=== PATIENT | male | born 1990 | race Caucasian/White ===

== ENCOUNTER 2018-11-28 23:53 | Emergency (ER) | payer BC, OTHER ==
[2018-11-29 00:41] LABS: Basophils % (Auto) 0.2 % (0.0-1.8); Eosinophils % (Auto) 0.2 % (0.0-4.3); Hematocrit 39.4 % (35.5-45.6); Hemoglobin 13.8 gm/dl (11.8-15.2); Lymphocytes # (Auto) 1.7 K/mm3 (1.2-5.4); Lymphocytes % (Auto) 12.2 % (13.4-35.0); Mean Corpuscular HGB Conc 35 % (32-34); Mean Corpuscular Volume 87 fl (84-94); Monocytes # (Auto) 1.4 K/mm3 (0.0-0.8); Platelet Count 268 K/mm3 (140-440); Red Blood Count 4.55 M/mm3 (3.65-5.03); Red Cell Distribution Width 14.1 % (13.2-15.2)
[2018-11-29 01:05] LABS: Alanine Aminotransferase 15 units/L (7-56); Albumin 4.3 g/dL (3.9-5); BUN/Creatinine Ratio 9; Blood Urea Nitrogen 8 mg/dL (9-20); Calcium 9.4 mg/dL (8.4-10.2); Hemolysis Index 1
[2018-11-29] MEDS ORDERED: K-DUR PO ONE (02:04)
--- NOTE | 2018-11-29 02:18 | Emergency Department Report ---
HPI - General Chief Complaint: Fever Time Seen by Provider: 11/29/18 02:03 - HPI HPI: 28-year-old male presents to the emergency department with complaint of a 5 day history of intermittent fever, chills, sweats, nausea, vomiting, sore throat and body aches. The patient went to an urgent care a few days ago and was diagnosed with strep throat and was placed on Augmentin, Zofran and ibuprofen. The patient did take one of the 800 mg ibuprofen just prior to coming in today. He says that he is able to drink water and some Gatorade and keep that down but is unable to keep down any food. He denies any past medical history. He does not have a primary care physician. No recent travel or sick contacts at home. ED Past Medical Hx - Past Medical History Previous Medical History?: Yes Additional medical history: unknown sepsis (4-5 years old) - Surgical History Past Surgical History?: No - Social History Smoking Status: Never Smoker - Medications Home Medications: Home Medications Medication Instructions Recorded Confirmed Last Taken Type Doxycycline Hyclate [Doxycycline 100 mg PO Q12HR #20 tab 01/29/16 Unknown Rx Hyclate TAB] HYDROcodone/APAP 5-325 [[place] 1 each PO Q6HR PRN #12 tablet 01/29/16 Unknown Rx 5/325] ED Review of Systems ROS: Stated complaint: NAUSEA FEVER CHILLS AND BODY ACHE Other details as noted in HPI Comment: All other systems reviewed and negative Constitutional: chills, fever Eyes: denies: eye pain, vision change ENT: throat pain. denies: ear pain Respiratory: denies: cough, shortness of breath Cardiovascular: denies: chest pain, palpitations Gastrointestinal: nausea, vomiting Genitourinary: denies: dysuria, discharge Musculoskeletal: myalgia. denies: joint swelling Skin: denies: rash, lesions Neurological: denies: headache, weakness Physical Exam - Physical Exam Vital Signs: Vital Signs 11/29/18 11/29/18 00:06 01:18 Temperature 99.0 F 99.6 F Pulse Rate 83 72 Respiratory 18 16 Rate Blood Pressure 133/85 Blood Pressure 127/80 [Left] O2 Sat by Pulse 100 99 Oximetry Physical Exam: GENERAL: The patient is well-developed well-nourished. HENT: Normocephalic. Atraumatic. Patient has moist mucous membranes. There is bilateral tonsillar hypertrophy with some bilateral exudate seen. No drooli ng or trismus. EYES: Extraocular motions are intact. Pupils equal reactive to light bilaterally. NECK: Supple. Trachea is midline. CHEST/LUNGS: Clear to auscultation. There is no respiratory distress noted. HEART/CARDIOVASCULAR: Regular. There is no tachycardia. There is no murmur. ABDOMEN: Abdomen is soft, nontender. Patient has normal bowel sounds. There is no abdominal distention. SKIN: Skin is warm and dry. NEURO: The patient is awake, alert, and oriented. The patient is cooperative. The patient has no focal neurologic deficits. The patient has normal speech. MUSCULOSKELETAL: There is no tenderness or deformity. There is no limitation range of motion. There is no evidence of acute injury. ED Course Vital Signs 11/29/18 11/29/18 00:06 01:18 Temperature 99.0 F 99.6 F Pulse Rate 83 72 Respiratory 18 16 Rate Blood Pressure 133/85 Blood Pressure 127/80 [Left] O2 Sat by Pulse 100 99 Oximetry ED Medical Decision Making - Lab Data Result diagrams: 11/29/18 00:26 11/29/18 00:26 - Medical Decision Making This patient presents to the emergency department with a complaint of about 5 days of intermittent fevers, nausea and vomiting, body aches, sore throat. He does admit that he has been able to drink water and Gatorade and keep it down but has been unable to eat food. The patient was recently diagnosed with strep pharyngitis and has been on Augmentin, Zofran and ibuprofen. He did take some ibuprofen prior to coming in and therefore did not have any fever here. Vital signs stable. He is posterior pharynx does have the appearance of a strep pharyngitis. However given that the patient's symptoms have continued despite taking the antibiotics, he could also have a viral pharyngitis and this could all be a viral syndrome. His labs are unremarkable except for some very mild hypokalemia that was replaced with potassium chloride. He will continue with his antibiotics, ibuprofen and Zofran. We discussed using Tylenol as well for control of fever. He will continue to remain hydrated with water and Gatorade. He was given some referrals for local primary care physicians. He will return to the ER with any worsening of his symptoms or any acute distress. - Differential Diagnosis viral pharyngitis, strep pharyngitis, viral syndrome, gastroenteritis Critical Care Time: No Critical care attestation.: If time is entered above; I have spent that time in minutes in the direct care of this critically ill patient, excluding procedure time. ED Disposition Clinical Impression: Viral syndrome, Pharyngitis Disposition: TO HOME OR SELFCARE Is pt being admited?: No Condition: Stable Instructions: Fever in Adults (ED), Acute Nausea and Vomiting (ED), Viral Syndrome (ED) Additional Instructions: Please follow up with a primary care physician. I will give you multiple referrals for some local primary care physicians. Return to the emergency Department with any worsening of your symptoms, inability to stay hydrated, or with any acute distress. You can take Tylenol every 4 hours and ibuprofen every 6 hours, using weight- based dosing on the back of the bottle, as needed for fever or discomfort. Referrals: JOANNA PUGH MD [Staff Physician] - 3-5 Days ZAHIRA MEDRANO MD [Staff Physician] - 3-5 Days JOSÉ MIGUEL RODRIGUEZ MD [Staff Physician] - 3-5 Days Forms: Accompanied Note, Work/School Release Form(ED) Time of Disposition: 02:18
[2018-11-29 02:46] VITALS: BP 128/75
== END 2018-11-29 02:42 | disposition home or self-care (01) ==
LOC: ED 23:53
DX: B34.9 Viral infection, unspecified (principal); J02.9 Acute pharyngitis, unspecified
CPT/HCPCS: 36415; 80053; 82140; 85025; 99283

== ENCOUNTER 2019-05-16 04:58 | Emergency (ER) | payer OTHER ==
[2019-05-16 06:27] LABS: Bacteria,Urine 1+ /HPF (Negative); Bilirubin,Urine NEG (Negative); Blood,Urine LG (Negative); Color,Urine Amber (Yellow); Mucus,Urine 3+ /HPF; Urobilinogen,Urine < 2.0 mg/dL (<2.0)
--- NOTE | 2019-05-16 06:42 | Ultrasound Report ---
ULTRASOUND SCROTUM INDICATION: Acute bilateral testicular pain. COMPARISON None available. FINDINGS: RIGHT TESTICLE: Normal in size, measuring 4.0 x 2.0 x 3.1 cm, with expected color flow and appearance . RIGHT EPIDIDYMIS: No significant abnormality. LEFT TESTICLE: Normal in size, measuring 4.3 x 2.3 x 2.8 cm, with expected color flow and appearance. LEFT EPIDIDYMIS: No significant abnormality. HYDROCELE: None seen. VARICOCELE: None seen. ADDITIONAL FINDINGS: None. IMPRESSION: 1. No sonographic abnormality of the scrotum/testes. Signer Name: Bradley Diaz MD Signed: 05/16/2019 6:37 AM Workstation Name: [id number]
--- NOTE | 2019-05-16 07:16 | Emergency Department Report ---
ED General Adult HPI - General Chief complaint: Urogenital-Male Stated complaint: LOWER STOMACH PAIN,PAIN IN PRIVATE AREA,NAUSEA Time Seen by Provider: 05/16/19 06:07 Source: patient, RN notes reviewed, old records reviewed Mode of arrival: Ambulatory Limitations: No Limitations - History of Present Illness Initial comments: During the entire history and physical examination, I am berry picker and escorted by nurse Alen Malloy The patient is a pleasant 29-year-old gentleman with a distant history of epididymitis. He presents to the ER today with a complaint of nontraumatic suprapubic pain, now resolved, history of testicular pressure, now resolved. Symptoms started at 3:00 in the morning, and were resolved with ibuprofen. He currently has no physical pain at this time. He denies dysuria and hematuria. He denies dyschezia. He denies rectal pain. He has no testicular pain at this time. Symptoms were aching, and now resolved. They do not radiate anywhere. He reports one sexual contact. He smokes marijuana, has not traveled outside the country, and has not had exposure to blue dye that he is aware of. -: Gradual Location: abdomen Radiation: non-radiation Consistency: now resolved Improves with: medication Worsens with: none Associated Symptoms: denies other symptoms - Related Data Previous Rx's Medication Instructions Recorded Last Taken Type Doxycycline Hyclate [Doxycycline 100 mg PO Q12HR #20 tab 01/29/16 Unknown Rx Hyclate TAB] HYDROcodone/APAP 5-325 [[place] 1 each PO Q6HR PRN #12 tablet 01/29/16 Unknown Rx 5/325] Acetaminophen [Non-Aspirin Extra 500 mg PO Q6HR PRN #30 tablet 05/16/19 Unknown Rx Strength] Ibuprofen [Motrin] 600 mg PO Q8H PRN #30 tablet 05/16/19 Unknown Rx Ondansetron [Zofran Odt] 4 mg PO Q8HR PRN #20 tab.rapdis 05/16/19 Unknown Rx cephALEXin [Keflex] 500 mg PO Q6HR #20 capsule 05/16/19 Unknown Rx Allergies Allergy/AdvReac Type Severity Reaction Status Date / Time No Known Allergies Allergy Verified 01/29/16 02:12 ED Review of Systems ROS: Stated complaint: LOWER STOMACH PAIN,PAIN IN PRIVATE AREA,NAUSEA Other details as noted in HPI Constitutional: denies: fever Cardiovascular: denies: syncope Gastrointestinal: abdominal pain, nausea Genitourinary: denies: urgency, dysuria, hematuria, testicular pain Musculoskeletal: denies: back pain, joint swelling Skin: denies: lesions Neurological: denies: weakness Hematological/Lymphatic: denies: easy bleeding ED Past Medical Hx - Past Medical History Previous Medical History?: No Additional medical history: unknown sepsis (4-5 years old) - Surgical History Past Surgical History?: No - Social History Smoking Status: Never Smoker Substance Use Type: Marijuana - Medications Home Medications: Home Medications Medication Instructions Recorded Confirmed Last Taken Type Doxycycline Hyclate [Doxycycline 100 mg PO Q12HR #20 tab 01/29/16 Unknown Rx Hyclate TAB] HYDROcodone/APAP 5-325 [[place] 1 each PO Q6HR PRN #12 tablet 01/29/16 Unknown Rx 5/325] Acetaminophen [Non-Aspirin Extra 500 mg PO Q6HR PRN #30 tablet 05/16/19 Unknown Rx Strength] Ibuprofen [Motrin] 600 mg PO Q8H PRN #30 tablet 05/16/19 Unknown Rx Ondansetron [Zofran Odt] 4 mg PO Q8HR PRN #20 tab.rapdis 05/16/19 Unknown Rx cephALEXin [Keflex] 500 mg PO Q6HR #20 capsule 05/16/19 Unknown Rx ED Physical Exam - General Limitations: No Limitations General appearance: alert, in no apparent distress - Head Head exam: Present: atraumatic, normocephalic - Eye Eye exam: Present: normal appearance, EOMI. Absent: nystagmus - ENT ENT exam: Present: normal exam, normal orophraynx, mucous membranes moist, normal external ear exam - Neck Neck exam: Present: normal inspection, full ROM. Absent: tenderness, meningismus - Respiratory Respiratory exam: Present: normal lung sounds bilaterally. Absent: respiratory distress - Cardiovascular Cardiovascular Exam: Present: regular rate, normal rhythm, normal heart sounds. Absent: bradycardia, tachycardia, irregular rhythm, systolic murmur, diastolic murmur, rubs, gallop - GI/Abdominal GI/Abdominal exam: Present: soft, normal bowel sounds. Absent: distended, tenderness, guarding, rebound, rigid, pulsatile mass - Rectal Rectal exam: Present: deferred - exam: Present: normal inspection, other (there is normal testicular lie. There is normal cremasteric reflex. There is no testicular tenderness. There is no testicular swelling). Absent: testicular tenderness External exam: Present: normal external exam, other (chaperoned by nurse Alen Malloy) - Extremities Exam Extremities exam: Present: normal inspection, full ROM, other (2+ pulses noted in the bilateral upper and lower extremities. There is no palpable cord. negative Homans sign. Muscular compartments are soft. The pelvis is stable.). Absent: tenderness, pedal edema, joint swelling, calf tenderness - Back Exam Back exam: Present: normal inspection, full ROM. Absent: tenderness, CVA tenderness (R), CVA tenderness (L), paraspinal tenderness, vertebral tenderness - Neurological Exam Neurological exam: Present: alert, oriented X3, normal gait, other (there is no facial droop. The tongue is midline. Extraocular movements are intact bilaterally. There is 5 out of 5 strength in bilateral upper and lower extremities. Sensation is intact to light touch bilateral upper and lower extremities. There is no past-pointing. There is no pronator drift. There is normal [id number]. There is a normal gait.). Absent: motor sensory deficit - Psychiatric Psychiatric exam: Present: normal affect, normal mood - Skin Skin exam: Present: warm, dry, intact, normal color. Absent: rash ED Course Vital Signs 05/16/19 05:24 Temperature 98.9 F Pulse Rate 79 Respiratory 18 Rate Blood Pressure 163/103 O2 Sat by Pulse 95 Oximetry ED Medical Decision Making - Lab Data Vital Signs 05/16/19 05:24 Temperature 98.9 F Pulse Rate 79 Respiratory 18 Rate Blood Pressure 163/103 O2 Sat by Pulse 95 Oximetry Lab Results 05/16/19 Range/Units 05:55 Urine Color [place] (Yellow) Urine Turbidity Cloudy (Clear) Urine pH 5.0 (5.0-7.0) Ur Specific [place] 1.021 (1.003-1.030) Urine Protein 100 mg/dl (Negative) mg/dL Urine Glucose (UA) Neg (Negative) mg/dL Urine Ketones Neg (Negative) mg/dL Urine Blood Lg (Negative) Urine Nitrite Neg (Negative) Urine Bilirubin Neg (Negative) Urine Urobilinogen < 2.0 (<2.0) mg/dL Ur Leukocyte Esterase Neg (Negative) Urine WBC (Auto) 4.0 (0.0-6.0) /HPF Urine RBC (Auto) 173.0 (0.0-6.0) /HPF U Epithel Cells (Auto) < 1.0 (0-13.0) /HPF Urine Bacteria (Auto) 1+ (Negative) /HPF Urine Mucus 3+ /HPF - Radiology Data Radiology results: report reviewed, image reviewed Print Report Referring Physician: NGOC PIERRE Patient Name: СВЕТЛНАА WERNER Date of : 1990 Sex: Male Report Date: 2019-05-16 Report Status: Finalized Findings [facility] [address] [place] [address] Ultrasound Report Signed Patient: СВЕТЛАНА WERNER MR#: [id number] : 1990 Acct:[id number] Age/Sex: 29 / M ADM Date: 05/16/19 Loc: ED Attending Dr: Ordering Physician: NGOC PIERRE MD Date of Service: 05/16/19 Procedure(s): US testicular doppler comp Accession Number(s): [id number] cc: NGOC PIERRE MD ULTRASOUND SCROTUM INDICATION: Acute bilateral testicular pain. COMPARISON None available. FINDINGS: RIGHT TESTICLE: Normal in size, measuring 4.0 x 2.0 x 3.1 cm, with expected color flow and appearance. RIGHT EPIDIDYMIS: No significant abnormality. LEFT TESTICLE: Normal in size, measuring 4.3 x 2.3 x 2.8 cm, with expected color flow and appearance. LEFT EPIDIDYMIS: No significant abnormality. HYDROCELE: None seen. VARICOCELE: None seen. ADDITIONAL FINDINGS: None. IMPRESSION: 1. No sonographic abnormality of the scrotum/testes. Signer Name: Bradley Diaz MD Signed: 05/16/2019 6:37 AM Workstation Name: [id number] Transcribed By: [place] Dictated By: Bradley Diaz MD Electronically Authenticated By: Bradley Diaz MD Signed Date/Time: 05/16/19636 DD/ 5 - Medical Decision Making Differential diagnosis, including but not limited to: Renal colic, cystitis, malignancy, bladder stone Assessment and plan: 29-year-old gentleman with resolved suprapubic discomfort. He has no testicular pain. He has no abdominal pain at this time. He is afebrile with reassuring vital signs with the exception of elevated blood pressure. Testicular examination not consistent with torsion. Ultrasound unremarkable. Urinalysis reviewed and appreciated. Extensive discussion had with patient. He prefers not to have CT scan and the abdomen and pelvis, as he is concerned about radiation exposure. He agrees that he would like to follow up with outpatient urology for further evaluation and management for his now asymptomatic hematuria. Through shared decision making, we agreed to have the patient discharged with pain medication, nausea medication, antibiotics, close outpatient neurology follow-up. The patient indicates he is reliable to follow-up. Return precautions are reviewed. Critical care attestation.: If time is entered above; I have spent that time in minutes in the direct care of this critically ill patient, excluding procedure time. ED Disposition Clinical Impression: Hematuria, History of abdominal pain Disposition: DC-01 TO HOME OR SELFCARE Is pt being admited?: No Does the pt Need Aspirin: No Condition: Stable Instructions: Acute Hematuria (ED) Additional Instructions: The time being, avoid consumption of alcohol, and smoke products. Take pain medication as needed, nausea medication as needed, antibiotics as directed. Recommend patient follow up with an outpatient urology doctor within the next 5- 7 days. Patient will need to follow-up to exclude cancer, tumor, malignancy of the genitourinary tract. Return to the emergency room right away with projectile vomiting, change in mental status, confusion, inability to tolerate liquid feeds. Patient was found to have elevated blood pressure while here in the emergency room. He should follow-up with a primary care doctor for this within the next 4-6 weeks. Referrals: MICHEAL DE LEÓN MD [Staff Physician] - 3-5 Days [facility] [place] [Provider Group] - 3-5 Days [facility] [Provider Group] - as needed
[2019-05-16 08:03] VITALS: BP 124/91
== END 2019-05-16 08:04 | disposition home or self-care (01) ==
LOC: ED 04:58
DX: R31.9 Hematuria, unspecified (principal); R10.30 Lower abdominal pain, unspecified; F12.10 Cannabis abuse, uncomplicated; Z79.899 Other long term (current) drug therapy
CPT/HCPCS: 81001; 93975

== ENCOUNTER 2019-06-11 17:47 | Emergency (ER) | payer BC, OTHER ==
--- NOTE | 2019-06-11 18:04 | Emergency Department Report ---
Blank Doc - Documentation Documentation: 29-year-old male that testicular pain. This initial assessment/diagnostic orders/clinical plan/treatment(s) is/are subject to change based on patient's health status, clinical progression and re- assessment by fellow clinical providers in the ED. Further treatment and workup at subsequent clinical providers discretion. Patient/guardians urged not to elope from the ED as their condition may be serious if not clinically assessed and managed. Initial orders include: 1- Patient sent to [facility] for further evaluation and treatment 2- UA 3- stat US testicular
[2019-06-11] MEDS ORDERED: ONDANSETRON 4 MG ODT TAB PO ONE (18:05)
[2019-06-11] MEDS ORDERED: ONDANSETRON 4 MG ODT TAB ONE (18:07)
--- NOTE | 2019-06-11 20:23 | Ultrasound Report ---
Scrotal ultrasound. 06/11/2019. HISTORY: Testicular pain. FINDINGS: Right testicle measures 4.2 x 2.2 x 2.7 cm. Left testicle measures 4 x 2.2 x 2.8 cm. Blood flow is normal. Negative for mass or fluid. A small epididymal cyst on the right measures 2 mm. IMPRESSION: Small right epididymal cyst. Signer Name: Erwin Vines MD Signed: 06/11/2019 8:19 PM Workstation Name: [id number]
[2019-06-11] MEDS ORDERED: ONDANSETRON 4 MG/2 ML INJ IV ONE (22:39)
[2019-06-11] MEDS ORDERED: KETOROLAC 30 MG/1 ML INJ IV ONE (22:39)
[2019-06-11] MEDS ORDERED: SODIUM CHLORIDE 0.9% 1000 ML 1,000 ML IV ONE (22:39)
[2019-06-11 23:37] LABS: Amorphous Crystals,Urine Few; Bacteria,Urine 1+ /HPF (Negative); Bilirubin,Urine NEG (Negative); Blood,Urine LG (Negative); Color,Urine Yellow (Yellow); Mucus,Urine 1+ /HPF; Urobilinogen,Urine < 2.0 mg/dL (<2.0)
[2019-06-11 23:55] LABS: Basophils % (Auto) 0.1 % (0.0-1.8); Hematocrit 42.2 % (35.5-45.6); Hemoglobin 14.5 gm/dl (11.8-15.2); Lymphocytes # (Auto) 1.1 K/mm3 (1.2-5.4); Lymphocytes % (Auto) 8.5 % (13.4-35.0); Mean Corpuscular HGB Conc 34 % (32-34); Mean Corpuscular Volume 88 fl (84-94); Monocytes # (Auto) 0.5 K/mm3 (0.0-0.8); Monocytes % (Auto) 3.7 % (0.0-7.3); Platelet Count 252 K/mm3 (140-440); Red Blood Count 4.78 M/mm3 (3.65-5.03); Red Cell Distribution Width 14.6 % (13.2-15.2)
--- NOTE | 2019-06-11 23:56 | Cat Scan Report ---
CT ABDOMEN AND PELVIS WITHOUT CONTRAST INDICATION: Bilateral flank pain. Nausea. Vomiting. TECHNICAL: Multiple axial CT images of the abdomen and pelvis were acquired without intravenous contr ast. Sagittal and coronal reformats were obtained. All CTs at this facility utilize dose reduction techniques including automated exposure control, iterative reconstruction and weight based dosing whe n appropriate to reduce patient radiation dose to as low as reasonable achievable. COMPARISON: No prior abdominal imaging is available. FINDINGS: Limited imaging of the bilateral lung bases demonstrates no acute abnormality. Abdomen: The liver, gallbladder, spleen, pancreas, bilateral adrenal glands and right kidney show no evidence of acute abnormality. There is mild left-sided hydronephrosis and perinephric stranding with an obstructing 4 mm stone in the proximal left ureter. There is no evidence of bowel obstruction. Th e appendix is visualized and appears normal. Pelvis: No free fluid is seen within the pelvis. The urinary bladder and prostate appear grossly norm al. Bones and Soft Tissues: Evaluation of bony structures demonstrates no acute bony abnormality. Soft t issue structures appear grossly normal. IMPRESSION: 1. Obstructing 4 mm stone in the proximal left ureter causing mild hydronephrosis and perinephric str anding. Signer Name: Shannan Marie MD Signed: 06/11/2019 11:52 PM Workstation Name: [id number]
[2019-06-12 00:22] LABS: Alanine Aminotransferase 28 units/L (7-56); Albumin 4.7 g/dL (3.9-5); BUN/Creatinine Ratio 10; Blood Urea Nitrogen 11 mg/dL (9-20); Calcium 9.6 mg/dL (8.4-10.2); Hemolysis Index 45
[2019-06-12] MEDS ORDERED: TAMSULOSIN 0.4 MG CAP PO ONE (01:03)
[2019-06-12] MEDS ORDERED: oxyCODONE /ACETAMINOPHEN 5-325MG TAB PO ONE (01:04)
[2019-06-12] MEDS ORDERED: ONDANSETRON 4 MG ODT TAB PO ONE (01:04)
--- NOTE | 2019-06-12 01:31 | Emergency Department Report ---
ED Male HPI - General Chief complaint: Urogenital-Male Stated complaint: EMESIS/LOWER ABD PAIN Time Seen by Provider: 06/11/19 18:03 Source: patient Mode of arrival: Ambulatory Limitations: No Limitations - History of Present Illness Initial comments: Patient is a 29-year-old male with no past medical history who presents to the ED with content of acute onset persistent severe bilateral testicular pain and left flank pain for the last 12 hours. Patient also complains of intractable nausea and vomiting and hematuria as well as suprapubic pain and decreased urination. Patient denies fever, chills, dizziness, syncope, traumatic injury, heavy lifting, penile discharge, low back pain, cough, chest pain or shortness of breath or diarrhea. MD Complaint: testicle pain (bilateral ), groin pain, other (left flank pain; hematuria; decreased urination; nausea and vomiting) -: Sudden, hour(s) (12) Location: penis, right testicle, left testicle, left inguinal region, left flank Radiation: none Severity: severe Severity scale (0 -10): 7 Quality: aching, sharp Consistency: constant Improves with: none Worsens with: none denies other symptoms, urinary retention, blood in urine, nausea/vomiting. denies: discharge, swelling, mass, rash, fever - Related Data Sexually active: Yes Previous Rx's Medication Instructions Recorded Last Taken Type Doxycycline Hyclate [Doxycycline 100 mg PO Q12HR #20 tab 01/29/16 Unknown Rx Hyclate TAB] HYDROcodone/APAP 5-325 [[place] 1 each PO Q6HR PRN #12 tablet 01/29/16 Unknown Rx 5/325] Acetaminophen [Non-Aspirin Extra 500 mg PO Q6HR PRN #30 tablet 05/16/19 Unknown Rx Strength] Ibuprofen [Motrin] 600 mg PO Q8H PRN #30 tablet 05/16/19 Unknown Rx Ondansetron [Zofran Odt] 4 mg PO Q8HR PRN #20 tab.rapdis 05/16/19 Unknown Rx cephALEXin [Keflex] 500 mg PO Q6HR #20 capsule 05/16/19 Unknown Rx Ciprofloxacin HCl [Ciprofloxacin 500 mg PO Q12HR #20 tab 06/12/19 Unknown Rx TAB] Ketorolac [Toradol] 10 mg PO Q8H PRN #20 tablet 06/12/19 Unknown Rx Ondansetron [Zofran Odt] 4 mg PO Q6HR PRN #20 tab.rapdis 06/12/19 Unknown Rx Tamsulosin [Flomax] 0.4 mg PO QDAY #10 cap 06/12/19 Unknown Rx oxyCODONE /ACETAMINOPHEN [Percocet 1 tab PO Q6HR PRN #12 tablet 06/12/19 Unknown Rx 5/325] Allergies Allergy/AdvReac Type Severity Reaction Status Date / Time No Known Allergies Allergy Verified 06/11/19 17:49 ED Review of Systems ROS: Stated complaint: EMESIS/LOWER ABD PAIN Other details as noted in HPI Constitutional: denies: chills, fever Eyes: denies: eye pain, eye discharge, vision change ENT: denies: ear pain, throat pain Respiratory: denies: cough, shortness of breath, wheezing Cardiovascular: denies: chest pain, palpitations Endocrine: no symptoms reported Gastrointestinal: abdominal pain (left flank), nausea, vomiting. denies: diarrhea Genitourinary: urgency, frequency, hematuria, testicular pain (left) Musculoskeletal: denies: back pain, joint swelling, arthralgia Skin: denies: rash, lesions Neurological: denies: headache, weakness, paresthesias Psychiatric: denies: anxiety, depression Hematological/Lymphatic: denies: easy bleeding, easy bruising ED Past Medical Hx - Past Medical History Previous Medical History?: No Additional medical history: unknown sepsis (4-5 years old) - Surgical History Past Surgical History?: No - Social History Smoking Status: Never Smoker Substance Use Type: None - Medications Home Medications: Home Medications Medication Instructions Recorded Confirmed Last Taken Type Doxycycline Hyclate [Doxycycline 100 mg PO Q12HR #20 tab 01/29/16 Unknown Rx Hyclate TAB] HYDROcodone/APAP 5-325 [[place] 1 each PO Q6HR PRN #12 tablet 01/29/16 Unknown Rx 5/325] Acetaminophen [Non-Aspirin Extra 500 mg PO Q6HR PRN #30 tablet 05/16/19 Unknown Rx Strength] Ibuprofen [Motrin] 600 mg PO Q8H PRN #30 tablet 05/16/19 Unknown Rx Ondansetron [Zofran Odt] 4 mg PO Q8HR PRN #20 tab.rapdis 05/16/19 Unknown Rx cephALEXin [Keflex] 500 mg PO Q6HR #20 capsule 05/16/19 Unknown Rx Ciprofloxacin HCl [Ciprofloxacin 500 mg PO Q12HR #20 tab 06/12/19 Unknown Rx TAB] Ketorolac [Toradol] 10 mg PO Q8H PRN #20 tablet 06/12/19 Unknown Rx Ondansetron [Zofran Odt] 4 mg PO Q6HR PRN #20 tab.rapdis 06/12/19 Unknown Rx Tamsulosin [Flomax] 0.4 mg PO QDAY #10 cap 06/12/19 Unknown Rx oxyCODONE /ACETAMINOPHEN [Percocet 1 tab PO Q6HR PRN #12 tablet 06/12/19 Unknown Rx 5/325] ED Physical Exam - General Limitations: No Limitations General appearance: alert, in no apparent distress - Head Head exam: Present: atraumatic, normocephalic, normal inspection - Eye Eye exam: Present: normal appearance, PERRL, EOMI - ENT ENT exam: Present: normal exam, normal orophraynx, mucous membranes moist, TM's normal bilaterally, normal external ear exam - Neck Neck exam: Present: normal inspection, full ROM - Respiratory Respiratory exam: Present: normal lung sounds bilaterally. Absent: respiratory distress, wheezes, rhonchi, chest wall tenderness, decreased breath sounds, prolonged expiratory - Cardiovascular Cardiovascular Exam: Present: regular rate, normal rhythm, normal heart sounds. Absent: systolic murmur, diastolic murmur, rubs, gallop - GI/Abdominal GI/Abdominal exam: Present: soft, tenderness (palpable left flank and left lower quadrant tenderness), normal bowel sounds. Absent: guarding, rebound, hyperactive bowel sounds, hypoactive bowel sounds, organomegaly - exam: Present: testicular tenderness (mildly tender bilateral testicles). Absent: scrotal swelling External exam: Present: other (male RN organizational consultant present during the genital exam) - Extremities Exam Extremities exam: Present: normal inspection, full ROM, normal capillary refill - Back Exam Back exam: Present: normal inspection, full ROM. Absent: tenderness, CVA tenderness (L), muscle spasm, paraspinal tenderness - Neurological Exam Neurological exam: Present: alert, oriented X3, CN II-XII intact, normal gait, reflexes normal - Psychiatric Psychiatric exam: Present: normal affect, normal mood - Skin Skin exam: Present: warm, dry, intact, normal color. Absent: rash ED Course Vital Signs 06/11/19 06/11/19 06/11/19 17:52 17:53 23:05 Temperature 98.2 F Pulse Rate 67 66 Respiratory 18 16 Rate Blood Pressure 136/98 O2 Sat by Pulse 99 98 Oximetry ED Medical Decision Making - Lab Data Result diagrams: 06/11/19 22:59 06/11/19 22:59 - Radiology Data Radiology results: report reviewed, image reviewed Findings [facility] [address] [place] [address] Cat Scan Report Signed Patient: СВЕТЛАНА WERNER MR#: [id number] : 1990 Acct:[id number] Age/Sex: 29 / M ADM Date: 06/11/19 Loc: ED Attending Dr: Ordering Physician: PAXTON LENTZ Date of Service: 06/11/19 Procedure(s): CT abdomen pelvis wo con Accession Number(s): [id number] cc: PAXTON LENTZ CT ABDOMEN AND PELVIS WITHOUT CONTRAST INDICATION: Bilateral flank pain. Nausea. Vomiting. TECHNICAL: Multiple axial CT images of the abdomen and pelvis were acquired without intravenous contrast. Sagittal and coronal reformats were obtained. All CTs at this facility utilize dose reduction techniques including automated exposure control, iterative reconstruction and weight based dosing when appropriate to reduce patient radiation dose to as low as reasonable achievable. COMPARISON: No prior abdominal imaging is available. FINDINGS: Limited imaging of the bilateral lung bases demonstrates no acute abnormality. Abdomen: The liver, gallbladder, spleen, pancreas, bilateral adrenal glands and right kidney show no evidence of acute abnormality. There is mild left-sided hydronephrosis and perinephric stranding with an obstructing 4 mm stone in the proximal left ureter. There is no evidence of bowel obstruction. The appendix is visualized and appears normal. Pelvis: No free fluid is seen within the pelvis. The urinary bladder and prostate appear grossly normal. Bones and Soft Tissues: Evaluation of bony structures demonstrates no acute bony abnormality. Soft tissue structures appear grossly normal. IMPRESSION: 1. Obstructing 4 mm stone in the proximal left ureter causing mild hydronephrosis and perinephric stranding. Signer Name: Shannan Marie MD Signed: 06/11/2019 11:52 PM Workstation Name: [id number] Transcribed By: EB Dictated By: Shannan Marie MD Electronically Authenticated By: Shannan Marie MD Signed Date/Time: 06/11/192351 DD/ 47 TD/TT: Findings [facility] [address] [place] [address] Ultrasound Report Signed Patient: СВЕТЛАНА WERNER MR#: [id number] : 1990 Acct:[id number] Age/Sex: 29 / M ADM Date: 06/11/19 Loc: ED Attending Dr: Ordering Physician: DAVID MURPHY NP Date of Service: 06/11/19 Procedure(s): US testicular doppler comp Accession Number(s): [id number] cc: DAVID MURPHY NP Scrotal ultrasound. 06/11/2019. HISTORY: Testicular pain. FINDINGS: Right testicle measures 4.2 x 2.2 x 2.7 cm. Left testicle measures 4 x 2.2 x 2.8 cm. Blood flow is normal. Negative for mass or fluid. A small epididymal cyst on the right measures 2 mm. IMPRESSION: Small right epididymal cyst. Signer Name: Erwin Vines MD Signed: 06/11/2019 8:19 PM Workstation Name: [id number] Transcribed By: ES Dictated By: Erwin Vines MD Electronically Authenticated By: Erwin Vines MD Signed Date/Time: 06/11/192018 DD/ 2 - Medical Decision Making This is a 12-year-old male who presented to the ED with testicular pain, left flank pain, hematuria and nausea and vomiting for 12 hours. In the ED, patient is alert and oriented 3 and is not in distress. Lab test results show acute leukocytosis of 13,100 and urinalysis shows significantly large amount of blood in urine. Patient was treated for pain in the ED and also received antiemetics, and 1 L normal saline IV bolus. Testicular ultrasound shows a small right epi didymal cyst. Abdomen pelvis CT scan without contrast report as read by the radiologist shows obstructing 4 mm stone in the proximal left ureter causing mild hydronephrosis and perinephric stranding. Patient was also treated in the ED with Flomax. Patient was discharged home on pain medications, Flomax, antiemetics, antibiotics and given a referral to a urologist Dr. Nicholas for follow-up in the next 3-5 days. Patient was advised to return to the ED immediately if symptoms get worse. - Differential Diagnosis UTI; Kidney stones; Epididymitis; STD Critical care attestation.: If time is entered above; I have spent that time in minutes in the direct care of this critically ill patient, excluding procedure time. ED Disposition Clinical Impression: Acute epididymitis, Kidney stone on left side, Nausea and vomiting in adult, Acute left flank pain Disposition: TO HOME OR SELFCARE Is pt being admited?: No Does the pt Need Aspirin: No Condition: Stable Instructions: Kidney Stones (ED), Epididymitis (ED), Acute Nausea and Vomiting (ED), Testicle Pain (ED), Flank Pain (ED) Additional Instructions: Take medications with food, drink plenty of fluids and follow-up with your primary care physician in 5-7 days for reevaluation. Consider following up with the urologist computational scientist Dr. Nicholas for reevaluation in 2-3 days. Return to the ED immediately if symptoms get worse. Prescriptions: Ciprofloxacin HCl [Ciprofloxacin TAB] 500 mg PO Q12HR #20 tab Tamsulosin [Flomax] 0.4 mg PO QDAY #10 cap oxyCODONE /ACETAMINOPHEN [Percocet 5/325] 1 tab PO Q6HR PRN #12 tablet PRN Reason: Pain Ketorolac [Toradol] 10 mg PO Q8H PRN #20 tablet PRN Reason: Pain Ondansetron [Zofran Odt] 4 mg PO Q6HR PRN #20 tab.rapdis PRN Reason: Nausea Referrals: MICHEAL NICHOLAS MD [Staff Physician] - 3-5 Days JOSÉ MIGUEL RODRIGUEZ MD [Staff Physician] - 3-5 Days Forms: STI Treatment and Prevention Time of Disposition: 01:28 Print Language: KUWAITI
[2019-06-12 02:16] VITALS: BP 132/88
== END 2019-06-12 02:14 | disposition home or self-care (01) ==
LOC: ED 17:47
DX: N45.1 Epididymitis (principal); N20.0 Calculus of kidney; Z79.899 Other long term (current) drug therapy
CPT/HCPCS: 36415; 74176; 80053; 81001; 83690; 85025; 87086; 93975; 96361; 96374; 96375; 99284; J1885; J2405; J7030; Q0162

== ENCOUNTER 2019-08-12 10:34 | Emergency (ER) | payer BC ==
[2019-08-12] MEDS ORDERED: SODIUM CHLORIDE 0.9% 1000 ML 1,000 ML IV ONE (12:12)
[2019-08-12] MEDS ORDERED: ONDANSETRON 4 MG/2 ML INJ IV ONE ×2 (12:12→14:05)
[2019-08-12] MEDS ORDERED: MORPHINE 4 MG/1 ML INJ IV ONE (12:12)
[2019-08-12 12:17] LABS: Bacteria,Urine 1+ /HPF (Negative); Bilirubin,Urine NEG (Negative); Blood,Urine LG (Negative); Color,Urine Yellow (Yellow); Mucus,Urine 3+ /HPF; Urobilinogen,Urine < 2.0 mg/dL (<2.0)
--- NOTE | 2019-08-12 12:17 | Ultrasound Report ---
US testicular doppler comp INDICATION / CLINICAL INFORMATION: testicular pain. COMPARISON: None available. FINDINGS: Testicles are normal in size and echogenicity. Each epididymis appears normal. No abnormal fluid reji ection. Color Doppler imaging shows normal vascular flow in each testicle. IMPRESSION: 1. Negative study. No evidence of torsion. Signer Name: Les Crowder MD Signed: 08/12/2019 12:13 PM Workstation Name: [id number]
[2019-08-12 13:32] LABS: Alanine Aminotransferase 18 units/L (7-56); Albumin 4.8 g/dL (3.9-5); BUN/Creatinine Ratio 16; Blood Urea Nitrogen 14 mg/dL (9-20); Calcium 9.5 mg/dL (8.4-10.2); Hemolysis Index 14
[2019-08-12 13:38] LABS: Basophils % (Auto) 0.1 % (0.0-1.8); Eosinophils # (Auto) 0.1 K/mm3 (0.0-0.4); Eosinophils % (Auto) 0.6 % (0.0-4.3); Hematocrit 42.9 % (35.5-45.6); Hemoglobin 14.3 gm/dl (11.8-15.2); Lymphocytes # (Auto) 1.6 K/mm3 (1.2-5.4); Lymphocytes % (Auto) 12.4 % (13.4-35.0); Mean Corpuscular HGB Conc 33 % (32-34); Mean Corpuscular Volume 89 fl (84-94); Monocytes # (Auto) 0.8 K/mm3 (0.0-0.8); Monocytes % (Auto) 5.8 % (0.0-7.3); Platelet Count 248 K/mm3 (140-440); Red Blood Count 4.84 M/mm3 (3.65-5.03); Red Cell Distribution Width 14.4 % (13.2-15.2)
--- NOTE | 2019-08-12 13:39 | Cat Scan Report ---
CT OF THE ABDOMEN AND PELVIS WITHOUT CONTRAST INDICATION / CLINICAL INFORMATION: Flank and testicular pain last night. TECHNIQUE: All CT scans at this location are performed using CT dose reduction for [place] by means of automated e xposure control. COMPARISON: 06/11/19. FINDINGS: ABDOMEN: There is mild to moderate left pelvocaliectasis and ureterectasis. The left kidney is mildly edematous with mild associated perinephric soft tissue stranding. The right kidney is normal. I see no evidence of a renal calculus or mass. The liver, spleen, gallbladder, bile ducts, pancreas and adrenal glands are normal. There is a small hiatal hernia. No adenopathy is seen. The lung bases are clear. PELVIS: There is moderate dilatation of the left ureter to the level of the ureterovesical junction. There are one or 2 adjacent calculi at that site, best seen on axial image #493 of series #3. The com bined length is approximately 5 mm and the width 3 mm. The distal right ureter, urinary bladder and prostate gland are normal. A normal appendix is present. There are few scattered right colonic diverticula without evidence of diverticulitis. I do not ident vinicio a hernia. No acute osseous abnormality is seen. IMPRESSION:1 or 2 adjacent calculi at the left ureterovesical junction are causing mild to moderate h ydronephrosis. The combined dimension of the calculi are 5 x 3 mm. Signer Name: Alen Darby MD Signed: 08/12/2019 1:35 PM Workstation Name: [id number]
--- NOTE | 2019-08-12 13:56 | Emergency Department Report ---
ED General Adult HPI - General Chief complaint: Urogenital-Male Stated complaint: GENITALS AREA PAIN/VOMIT Time Seen by Provider: 08/12/19 11:57 Source: patient Mode of arrival: Ambulatory Limitations: No Limitations - History of Present Illness Initial comments: Patient presents to the emergency department the chief complaint of left testicular pain as well as right flank pain. Patient states he has a history of kidney stones and this feels very similar to stones he had in the past. -: Sudden Location: back, genitals, left, right Radiation: other (Groin) Severity scale (0 -10): 9 Quality: sharp Consistency: constant Improves with: none Worsens with: none Associated Symptoms: denies other symptoms Treatments Prior to Arrival: none - Related Data Previous Rx's Medication Instructions Recorded Last Taken Type Doxycycline Hyclate [Doxycycline 100 mg PO Q12HR #20 tab 01/29/16 Unknown Rx Hyclate TAB] HYDROcodone/APAP 5-325 [[place] 1 each PO Q6HR PRN #12 tablet 01/29/16 Unknown Rx 5/325] Acetaminophen [Non-Aspirin Extra 500 mg PO Q6HR PRN #30 tablet 05/16/19 Unknown Rx Strength] Ibuprofen [Motrin] 600 mg PO Q8H PRN #30 tablet 05/16/19 Unknown Rx Ondansetron [Zofran Odt] 4 mg PO Q8HR PRN #20 tab.rapdis 05/16/19 Unknown Rx cephALEXin [Keflex] 500 mg PO Q6HR #20 capsule 05/16/19 Unknown Rx Ciprofloxacin HCl [Ciprofloxacin 500 mg PO Q12HR #20 tab 06/12/19 Unknown Rx TAB] Ketorolac [Toradol] 10 mg PO Q8H PRN #20 tablet 06/12/19 Unknown Rx Ondansetron [Zofran Odt] 4 mg PO Q6HR PRN #20 tab.rapdis 06/12/19 Unknown Rx Tamsulosin [Flomax] 0.4 mg PO QDAY #10 cap 06/12/19 Unknown Rx oxyCODONE /ACETAMINOPHEN [Percocet 1 tab PO Q6HR PRN #12 tablet 06/12/19 Unknown Rx 5/325] HYDROcodone/APAP 7.5-325 [[place] 1 each PO Q6HR PRN #15 tablet 08/12/19 Unknown Rx 7.5/325] Ibuprofen [Motrin] 800 mg PO Q8HR PRN #30 tablet 08/12/19 Unknown Rx Sulfamethoxazole/Trimethoprim 1 each PO BID #14 tablet 08/12/19 Unknown Rx [Bactrim DS TAB] Tamsulosin [Flomax] 0.4 mg PO QDAY #7 cap 08/12/19 Unknown Rx Allergies Allergy/AdvReac Type Severity Reaction Status Date / Time No Known Allergies Allergy Verified 06/11/19 17:49 ED Review of Systems ROS: Stated complaint: GENITALS AREA PAIN/VOMIT Other details as noted in HPI Constitutional: denies: chills, fever Eyes: denies: eye pain, eye discharge, vision change ENT: denies: ear pain, throat pain Respiratory: denies: cough, shortness of breath, wheezing Cardiovascular: denies: chest pain, palpitations Endocrine: no symptoms reported Gastrointestinal: denies: abdominal pain, nausea, diarrhea Genitourinary: testicular pain. denies: urgency, dysuria Musculoskeletal: denies: back pain, joint swelling, arthralgia Skin: denies: rash, lesions Neurological: denies: headache, weakness, paresthesias Psychiatric: denies: anxiety, depression Hematological/Lymphatic: denies: easy bleeding, easy bruising ED Past Medical Hx - Past Medical History Previous Medical History?: Yes Hx Kidney Stones: Yes Additional medical history: unknown sepsis (4-5 years old) - Surgical History Past Surgical History?: No - Social History Smoking Status: Never Smoker Substance Use Type: Marijuana - Medications Home Medications: Home Medications Medication Instructions Recorded Confirmed Last Taken Type Doxycycline Hyclate [Doxycycline 100 mg PO Q12HR #20 tab 01/29/16 Unknown Rx Hyclate TAB] HYDROcodone/APAP 5-325 [[place] 1 each PO Q6HR PRN #12 tablet 01/29/16 Unknown Rx 5/325] Acetaminophen [Non-Aspirin Extra 500 mg PO Q6HR PRN #30 tablet 05/16/19 Unknown Rx Strength] Ibuprofen [Motrin] 600 mg PO Q8H PRN #30 tablet 05/16/19 Unknown Rx Ondansetron [Zofran Odt] 4 mg PO Q8HR PRN #20 tab.rapdis 05/16/19 Unknown Rx cephALEXin [Keflex] 500 mg PO Q6HR #20 capsule 05/16/19 Unknown Rx Ciprofloxacin HCl [Ciprofloxacin 500 mg PO Q12HR #20 tab 06/12/19 Unknown Rx TAB] Ketorolac [Toradol] 10 mg PO Q8H PRN #20 tablet 06/12/19 Unknown Rx Ondansetron [Zofran Odt] 4 mg PO Q6HR PRN #20 tab.rapdis 06/12/19 Unknown Rx Tamsulosin [Flomax] 0.4 mg PO QDAY #10 cap 06/12/19 Unknown Rx oxyCODONE /ACETAMINOPHEN [Percocet 1 tab PO Q6HR PRN #12 tablet 06/12/19 Unknown Rx 5/325] HYDROcodone/APAP 7.5-325 [[place] 1 each PO Q6HR PRN #15 tablet 08/12/19 Unknown Rx 7.5/325] Ibuprofen [Motrin] 800 mg PO Q8HR PRN #30 tablet 08/12/19 Unknown Rx Sulfamethoxazole/Trimethoprim 1 each PO BID #14 tablet 08/12/19 Unknown Rx [Bactrim DS TAB] Tamsulosin [Flomax] 0.4 mg PO QDAY #7 cap 08/12/19 Unknown Rx ED Physical Exam - General Limitations: No Limitations General appearance: alert, in no apparent distress - Head Head exam: Present: atraumatic, normocephalic - Eye Eye exam: Present: normal appearance, PERRL, EOMI - ENT ENT exam: Present: mucous membranes moist - Neck Neck exam: Present: normal inspection - Respiratory Respiratory exam: Present: normal lung sounds bilaterally. Absent: respiratory distress - Cardiovascular Cardiovascular Exam: Present: regular rate, normal rhythm. Absent: systolic murmur, diastolic murmur, rubs, gallop - GI/Abdominal GI/Abdominal exam: Present: soft, normal bowel sounds. Absent: distended, tenderness - Rectal Rectal exam: Present: deferred - exam: Present: testicular tenderness (Left testicle tender to palpation) - Extremities Exam Extremities exam: Present: normal inspection - Back Exam Back exam: Present: normal inspection - Neurological Exam Neurological exam: Present: alert, oriented X3 - Psychiatric Psychiatric exam: Present: normal affect, normal mood - Skin Skin exam: Present: warm, dry, intact, normal color. Absent: rash ED Course Vital Signs 08/12/19 08/12/19 10:58 12:00 Temperature 98.3 F Pulse Rate 61 Respiratory 16 20 Rate Blood Pressure 147/99 O2 Sat by Pulse 100 Oximetry ED Medical Decision Making - Lab Data Result diagrams: 08/12/19 12:45 08/12/19 12:45 Lab Results 08/12/19 08/12/19 08/12/19 Range/Units 12:00 12:45 12:45 WBC 13.3 H (4.5-11.0) K/mm3 RBC 4.84 (3.65-5.03) M/mm3 Hgb 14.3 (11.8-15.2) gm/dl Hct 42.9 (35.5-45.6) % MCV 89 (84-94) fl MCH 30 (28-32) pg MCHC 33 (32-34) % RDW 14.4 (13.2-15.2) % Plt Count 248 (140-440) K/mm3 Lymph % (Auto) 12.4 L (13.4-35.0) % [place] % (Auto) 5.8 (0.0-7.3) % Eos % (Auto) 0.6 (0.0-4.3) % Baso % (Auto) 0.1 (0.0-1.8) % Lymph # 1.6 (1.2-5.4) K/mm3 [place] # 0.8 (0.0-0.8) K/mm3 Eos # 0.1 (0.0-0.4) K/mm3 Baso # 0.0 (0.0-0.1) K/mm3 Seg Neutrophils % 81.1 H (40.0-70.0) % Seg Neutrophils # 10.8 H (1.8-7.7) K/mm3 Sodium 139 (137-145) mmol/L Potassium 3.5 L (3.6-5.0) mmol/L Chloride 103.0 (98-107) mmol/L Carbon Dioxide 18 L (22-30) mmol/L Anion Gap 22 mmol/L BUN 14 (9-20) mg/dL Creatinine 0.9 (0.8-1.5) mg/dL Estimated GFR > 60 ml/min BUN/Creatinine Ratio 16 % Glucose 132 H (75-100) mg/dL Calcium 9.5 (8.4-10.2) mg/dL Total Bilirubin 0.50 (0.1-1.2) mg/dL AST 19 (5-40) units/L ALT 18 (7-56) units/L Alkaline Phosphatase 68 (35-129) units/L Total Protein 7.9 (6.3-8.2) g/dL Albumin 4.8 (3.9-5) g/dL Albumin/Globulin Ratio 1.5 % Urine Color Yellow (Yellow) Urine Turbidity Slightly-cloudy (Clear) Urine pH 5.0 (5.0-7.0) Ur Specific [place] 1.035 H (1.003-1.030) Urine Protein 30 mg/dl (Negative) mg/dL Urine Glucose (UA) Neg (Negative) mg/dL Urine Ketones Tr (Negative) mg/dL Urine Blood Lg (Negative) Urine Nitrite Neg (Negative) Urine Bilirubin Neg (Negative) Urine Urobilinogen < 2.0 (<2.0) mg/dL Ur Leukocyte Esterase Tr (Negative) Urine WBC (Auto) 6.0 (0.0-6.0) /HPF Urine RBC (Auto) 9.0 (0.0-6.0) /HPF U Epithel Cells (Auto) 3.0 (0-13.0) /HPF Urine Bacteria (Auto) 1+ (Negative) /HPF Urine Mucus 3+ /HPF - Radiology Data Radiology results: report reviewed - Medical Decision Making return if worse Critical care attestation.: If time is entered above; I have spent that time in minutes in the direct care of this critically ill patient, excluding procedure time. ED Disposition Clinical Impression: Nephrolithiasis Disposition: DC-01 TO HOME OR SELFCARE Is pt being admited?: No Does the pt Need Aspirin: No Condition: Stable Instructions: Kidney Stones (ED) Additional Instructions: return if worse Prescriptions: Sulfamethoxazole/Trimethoprim [Bactrim DS TAB] 1 each PO BID #14 tablet Tamsulosin [Flomax] 0.4 mg PO QDAY #7 cap Ibuprofen [Motrin] 800 mg PO Q8HR PRN #30 tablet PRN Reason: Pain HYDROcodone/APAP 7.5-325 [[place] 7.5/325] 1 each PO Q6HR PRN #15 tablet PRN Reason: Pain Referrals: MICHEAL DE LEÓN MD [Staff Physician] - 3-5 Days Time of Disposition: 14:07
[2019-08-12] MEDS ORDERED: oxyCODONE /ACETAMINOPHEN 5-325MG TAB PO ONE (14:05)
[2019-08-12 15:39] VITALS: BP 130/88
== END 2019-08-12 15:45 | disposition home or self-care (01) ==
LOC: ED 10:34
DX: N20.0 Calculus of kidney (principal); F12.90 Cannabis use, unspecified, uncomplicated; Z87.442 Personal history of urinary calculi; Z79.899 Other long term (current) drug therapy
CPT/HCPCS: 36415; 74176; 80053; 81001; 85025; 93975; 96374; 96375; 96376; 99284; J2270; J2405; J7030

== ENCOUNTER 2019-09-04 07:13 | Emergency (ER) | payer BC ==
[2019-09-04] MEDS ORDERED: KETOROLAC 30 MG/1 ML INJ IV ONE (08:18)
[2019-09-04] MEDS ORDERED: SODIUM CHLORIDE 0.9% 1000 ML 1,000 ML IV ONE (08:19)
[2019-09-04] MEDS ORDERED: METOCLOPRAMIDE 10 MG/2 ML INJ IV ONE (08:19)
--- NOTE | 2019-09-04 08:26 | Emergency Department Report ---
ED Abdominal Pain HPI - General Chief Complaint: Urogenital-Male Stated Complaint: NAUSEA/KIDNEY STONES/DIARRHEA Time Seen by Provider: 09/04/19 08:13 Source: patient Mode of arrival: Ambulatory Limitations: No Limitations - History of Present Illness Initial Comments: This is a 29-year-old young gentleman who presents the ED complaining of left groin flank and back pain worsening in the past couple days. Patient states that he has been here several times this year and her has a history of ureteral stone. Patient states that he believes the pain is caused by his stone. Patient states that he has decreased urination and has not had a chance to u rinate today. Patient does admit urinary urge. Patient states pain starts and is left groin area to flank radiates to his back. He denies any injury or trauma. He admits some nausea but no vomiting. Patient denies fever/chills/chest pain/shortness of breath MD Complaint: flank pain Location: L flank Radiation: back (Left) Severity: moderate Severity scale (0 -10): 9 Quality: stabbing, aching - Related Data Previous Rx's Medication Instructions Recorded Last Taken Type Doxycycline Hyclate [Doxycycline 100 mg PO Q12HR #20 tab 01/29/16 Unknown Rx Hyclate TAB] HYDROcodone/APAP 5-325 [[place] 1 each PO Q6HR PRN #12 tablet 01/29/16 Unknown Rx 5/325] Acetaminophen [Non-Aspirin Extra 500 mg PO Q6HR PRN #30 tablet 05/16/19 Unknown Rx Strength] Ibuprofen [Motrin] 600 mg PO Q8H PRN #30 tablet 05/16/19 Unknown Rx cephALEXin [Keflex] 500 mg PO Q6HR #20 capsule 05/16/19 Unknown Rx Ciprofloxacin HCl [Ciprofloxacin 500 mg PO Q12HR #20 tab 06/12/19 Unknown Rx TAB] Ondansetron [Zofran Odt] 4 mg PO Q6HR PRN #20 tab.rapdis 06/12/19 Unknown Rx Tamsulosin [Flomax] 0.4 mg PO QDAY #10 cap 06/12/19 Unknown Rx oxyCODONE /ACETAMINOPHEN [Percocet 1 tab PO Q6HR PRN #12 tablet 06/12/19 Unknown Rx 5/325] HYDROcodone/APAP 7.5-325 [[place] 1 each PO Q6HR PRN #15 tablet 08/12/19 Unknown Rx 7.5/325] Ibuprofen [Motrin] 800 mg PO Q8HR PRN #30 tablet 08/12/19 Unknown Rx Sulfamethoxazole/Trimethoprim 1 each PO BID #14 tablet 08/12/19 Unknown Rx [Bactrim DS TAB] Ketorolac [Toradol] 10 mg PO Q8H PRN #20 tablet 09/04/19 Unknown Rx Ondansetron [Zofran ODT TAB] 4 mg PO Q8HR PRN #20 tab.rapdis 09/04/19 Unknown Rx Tamsulosin [Flomax] 0.4 mg PO QDAY #7 cap 09/04/19 Unknown Rx Allergies Allergy/AdvReac Type Severity Reaction Status Date / Time No Known Allergies Allergy Verified 06/11/19 17:49 ED Review of Systems ROS: Stated complaint: NAUSEA/KIDNEY STONES/DIARRHEA Other details as noted in HPI Comment: All other systems reviewed and negative ED Past Medical Hx - Past Medical History Hx Kidney Stones: Yes Additional medical history: unknown sepsis (4-5 years old) - Social History Smoking Status: Never Smoker Substance Use Type: Marijuana - Medications Home Medications: Home Medications Medication Instructions Recorded Confirmed Last Taken Type Doxycycline Hyclate [Doxycycline 100 mg PO Q12HR #20 tab 01/29/16 Unknown Rx Hyclate TAB] HYDROcodone/APAP 5-325 [[place] 1 each PO Q6HR PRN #12 tablet 01/29/16 Unknown Rx 5/325] Acetaminophen [Non-Aspirin Extra 500 mg PO Q6HR PRN #30 tablet 05/16/19 Unknown Rx Strength] Ibuprofen [Motrin] 600 mg PO Q8H PRN #30 tablet 05/16/19 Unknown Rx cephALEXin [Keflex] 500 mg PO Q6HR #20 capsule 05/16/19 Unknown Rx Ciprofloxacin HCl [Ciprofloxacin 500 mg PO Q12HR #20 tab 06/12/19 Unknown Rx TAB] Ondansetron [Zofran Odt] 4 mg PO Q6HR PRN #20 tab.rapdis 06/12/19 Unknown Rx Tamsulosin [Flomax] 0.4 mg PO QDAY #10 cap 06/12/19 Unknown Rx oxyCODONE /ACETAMINOPHEN [Percocet 1 tab PO Q6HR PRN #12 tablet 06/12/19 Unknown Rx 5/325] HYDROcodone/APAP 7.5-325 [[place] 1 each PO Q6HR PRN #15 tablet 08/12/19 Unknown Rx 7.5/325] Ibuprofen [Motrin] 800 mg PO Q8HR PRN #30 tablet 08/12/19 Unknown Rx Sulfamethoxazole/Trimethoprim 1 each PO BID #14 tablet 08/12/19 Unknown Rx [Bactrim DS TAB] Ketorolac [Toradol] 10 mg PO Q8H PRN #20 tablet 09/04/19 Unknown Rx Ondansetron [Zofran ODT TAB] 4 mg PO Q8HR PRN #20 tab.rapdis 09/04/19 Unknown Rx Tamsulosin [Flomax] 0.4 mg PO QDAY #7 cap 09/04/19 Unknown Rx ED Physical Exam - General Limitations: No Limitations General appearance: alert, in no apparent distress - Head Head exam: Present: atraumatic, normocephalic - Eye Eye exam: Present: normal appearance - ENT ENT exam: Present: mucous membranes moist - Neck Neck exam: Present: normal inspection - Respiratory Respiratory exam: Present: normal lung sounds bilaterally. Absent: respiratory distress - Cardiovascular Cardiovascular Exam: Present: regular rate, normal rhythm. Absent: systolic mu rmur, diastolic murmur, rubs, gallop - GI/Abdominal GI/Abdominal exam: Present: soft, normal bowel sounds - Rectal Rectal exam: Present: deferred - Extremities Exam Extremities exam: Present: normal inspection - Back Exam Back exam: Present: normal inspection - Neurological Exam Neurological exam: Present: alert, oriented X3 - Psychiatric Psychiatric exam: Present: normal affect, normal mood - Skin Skin exam: Present: warm, dry, intact, normal color. Absent: rash ED Medical Decision Making - Lab Data Result diagrams: 09/04/19 08:32 09/04/19 08:32 - Radiology Data Radiology results: report reviewed, image reviewed Cat Scan Report Signed Patient: СВЕТЛАНА WERNER MR#: [id number] : 1990 Acct:[id number] Age/Sex: 29 / M ADM Date: 09/04/19 Loc: ED Attending Dr: Ordering Physician: PAXTON HILTON Date of Service: 09/04/19 Procedure(s): CT abdomen pelvis wo con Accession Number(s): [id number] cc: PAXTON HILTON CT abdomen pelvis wo con INDICATION: fllank pain, hx of uretral stone. TECHNIQUE: All CT scans at this location are performed using the following dose modulation technique: Automated exposure control. Helical slices were obtained through the abdomen and pelvis. No contrast is administered. COMPARISON: CT scan dated 08/12/2019 FINDINGS: Abdomen: No acute abnormality is seen in the lower chest. The liver, spleen, pancreas, adrenal glands, and small bowel show no acute abnormality. There is mild left hydroureteronephrosis. This appears relatively unchanged from the prior study. Pelvis: Previously noted stones in the distal left ureter are again noted and appear unchanged. Combined size is 5 x 3 mm. There is no adenopathy. The appendix is unremarkable. On review of bone windows, no acute osseous abnormalities are seen. IMPRESSION: 1. Calculi in the distal left ureter at the left ureterovesical junction appear unchanged. Hydroureteronephrosis on the left appears unchanged. Signer Name: Keaton Durand MD Signed: 09/04/2019 10:32 AM Workstation Name: [id number] Transcribed By: Dictated By: Keaton Durand MD Electronically Authenticated By: Keaton Durand MD Signed Date/Time: 09/04/19 1032 - Medical Decision Making This 29-year-old male presenting with flank pain most likely secondary to ureteral stone I reviewed patient's chart from August 12, 2019 which was the last time patient was evaluated here in this emergency room. Patient received a CT scan and ultrasound of the testicular. This test reveals ureteral stone 4 mm. Patient was given pain medication and told to follow-up with Dr. Nicholas. The urologist. Labs obtained today. Labs were, urinalysis Patient received fluids, pain medication in the ED. Vital signs are normal. Patient is in no acute distress patient reports feeling a bit better. Patient will be discharged home with meds and follow-up with Dr. Nicholas Critical care attestation.: If time is entered above; I have spent that time in minutes in the direct care of this critically ill patient, excluding procedure time. ED Disposition Clinical Impression: Ureteral stone, Flank pain Disposition: DC-01 TO HOME OR SELFCARE Is pt being admited?: No Does the pt Need Aspirin: No Condition: Stable Instructions: Kidney Stones (ED), Ureteroscopy (GEN), Flank Pain (ED) Additional Instructions: Make sure to follow up with the primary care physician as discussed. Take all your medications as you've been prescribed. If you have any worsening symptoms or develop new symptoms please return to ED immediately. Prescriptions: Tamsulosin [Flomax] 0.4 mg PO QDAY #7 cap Ketorolac [Toradol] 10 mg PO Q8H PRN #20 tablet PRN Reason: Pain Ondansetron [Zofran ODT TAB] 4 mg PO Q8HR PRN #20 tab.rapdis PRN Reason: Nausea Referrals: PRIMARY CARE, [Primary Care Provider] - 3-5 Days MICHEAL NICHOLAS MD [Staff Physician] - 3-5 Days Forms: Accompanied Note, Work/School Release Form(ED) Time of Disposition: 10:47
[2019-09-04 08:47] LABS: Basophils % (Auto) 0.2 % (0.0-1.8); Eosinophils # (Auto) 0.2 K/mm3 (0.0-0.4); Eosinophils % (Auto) 2.2 % (0.0-4.3); Hematocrit 42.3 % (35.5-45.6); Hemoglobin 14.3 gm/dl (11.8-15.2); Lymphocytes # (Auto) 2.1 K/mm3 (1.2-5.4); Lymphocytes % (Auto) 21.1 % (13.4-35.0); Mean Corpuscular HGB Conc 34 % (32-34); Mean Corpuscular Volume 89 fl (84-94); Monocytes # (Auto) 0.7 K/mm3 (0.0-0.8); Monocytes % (Auto) 7.2 % (0.0-7.3); Platelet Count 230 K/mm3 (140-440); Red Blood Count 4.77 M/mm3 (3.65-5.03); Red Cell Distribution Width 14.4 % (13.2-15.2)
[2019-09-04 09:09] LABS: Alanine Aminotransferase 18 units/L (7-56); Albumin 4.6 g/dL (3.9-5); BUN/Creatinine Ratio 11; Blood Urea Nitrogen 10 mg/dL (9-20); Calcium 9.2 mg/dL (8.4-10.2); Hemolysis Index 7
[2019-09-04 10:06] LABS: Bilirubin,Urine NEG (Negative); Blood,Urine NEG (Negative); Color,Urine Yellow (Yellow); Mucus,Urine FEW /HPF; Protein,Urine <15 mg/dL mg/dL (Negative); Urobilinogen,Urine < 2.0 mg/dL (<2.0)
--- NOTE | 2019-09-04 10:36 | Cat Scan Report ---
CT abdomen pelvis wo con INDICATION: fllank pain, hx of uretral stone. TECHNIQUE: All CT scans at this location are performed using the following dose modulation technique: Automated exposure control. Helical slices were obtained through the abdomen and pelvis. No contrast is adminis tered. COMPARISON: CT scan dated 08/12/2019 FINDINGS: Abdomen: No acute abnormality is seen in the lower chest. The liver, spleen, pancreas, adrenal glands , and small bowel show no acute abnormality. There is mild left hydroureteronephrosis. This appears r elatively unchanged from the prior study. Pelvis: Previously noted stones in the distal left ureter are again noted and appear unchanged. Combi kimberlee size is 5 x 3 mm. There is no adenopathy. The appendix is unremarkable. On review of bone windows, no acute osseous abnormalities are seen. IMPRESSION: 1. Calculi in the distal left ureter at the left ureterovesical junction appear unchanged. Hydrourete ronephrosis on the left appears unchanged. Signer Name: Keaton Durand MD Signed: 09/04/2019 10:32 AM Workstation Name: [id number]
[2019-09-04 11:12] VITALS: BP 131/81
== END 2019-09-04 11:11 | disposition home or self-care (01) ==
LOC: ED 07:13
DX: N20.1 Calculus of ureter (principal); F12.10 Cannabis abuse, uncomplicated
CPT/HCPCS: 36415; 74176; 80053; 81001; 85025; 96374; 96375; 99284; J1885; J2765; J7030

== ENCOUNTER 2019-09-12 06:55 | Emergency (ER) | payer BC ==
[2019-09-12 07:46] VITALS: BP 116/89
--- NOTE | 2019-09-12 08:05 | Emergency Department Report ---
ED Male HPI - General Chief complaint: Urogenital-Male Stated complaint: POSS KIDNEY STONES Time Seen by Provider: 09/12/19 07:53 Source: patient Mode of arrival: Ambulatory Limitations: No Limitations - History of Present Illness Initial comments: 29-year-old male presents emergency department complaining of continued flank pain was diagnosed with a left distal ureter kidney stone 4mm about 1 week ago. He states he has a follow-up appointment with the urologist next week next week but has run out of his medications that were given primarily Toradol. He presents emerge department seeking a new medication refill reports no change in his overall symptoms does not think he has passed a stone but has not been straining the urine. He reports no fever, chills, sweats no nausea vomiting no hematuria. He reports no trauma -: Gradual Radiation: none Severity: mild Quality: aching Consistency: constant Improves with: none Worsens with: urination dysuria. denies: discharge, nausea/vomiting, incontinence - Related Data Previous Rx's Medication Instructions Recorded Last Taken Type Doxycycline Hyclate [Doxycycline 100 mg PO Q12HR #20 tab 01/29/16 Unknown Rx Hyclate TAB] HYDROcodone/APAP 5-325 [[place] 1 each PO Q6HR PRN #12 tablet 01/29/16 Unknown Rx 5/325] Acetaminophen [Non-Aspirin Extra 500 mg PO Q6HR PRN #30 tablet 05/16/19 Unknown Rx Strength] Ibuprofen [Motrin] 600 mg PO Q8H PRN #30 tablet 05/16/19 Unknown Rx cephALEXin [Keflex] 500 mg PO Q6HR #20 capsule 05/16/19 Unknown Rx Ciprofloxacin HCl [Ciprofloxacin 500 mg PO Q12HR #20 tab 06/12/19 Unknown Rx TAB] Ondansetron [Zofran Odt] 4 mg PO Q6HR PRN #20 tab.rapdis 06/12/19 Unknown Rx Tamsulosin [Flomax] 0.4 mg PO QDAY #10 cap 06/12/19 Unknown Rx oxyCODONE /ACETAMINOPHEN [Percocet 1 tab PO Q6HR PRN #12 tablet 06/12/19 Unknown Rx 5/325] HYDROcodone/APAP 7.5-325 [[place] 1 each PO Q6HR PRN #15 tablet 08/12/19 Unknown Rx 7.5/325] Ibuprofen [Motrin] 800 mg PO Q8HR PRN #30 tablet 08/12/19 Unknown Rx Sulfamethoxazole/Trimethoprim 1 each PO BID #14 tablet 08/12/19 Unknown Rx [Bactrim DS TAB] Ketorolac [Toradol] 10 mg PO Q8H PRN #20 tablet 09/04/19 Unknown Rx Ondansetron [Zofran ODT TAB] 4 mg PO Q8HR PRN #20 tab.rapdis 09/04/19 Unknown Rx Tamsulosin [Flomax] 0.4 mg PO QDAY #7 cap 09/04/19 Unknown Rx Ketorolac [Toradol] 10 mg PO Q6H PRN #30 tablet 09/12/19 Unknown Rx Sulfamethoxazole/Trimethoprim 1 each PO BID #20 tablet 09/12/19 Unknown Rx [Bactrim DS TAB] Tamsulosin [Flomax] 0.4 mg PO QDAY #10 cap 09/12/19 Unknown Rx Allergies Allergy/AdvReac Type Severity Reaction Status Date / Time No Known Allergies Allergy Verified 06/11/19 17:49 ED Review of Systems ROS: Stated complaint: POSS KIDNEY STONES Other details as noted in HPI Comment: All other systems reviewed and negative ED Past Medical Hx - Past Medical History Previous Medical History?: Yes Hx Kidney Stones: Yes Additional medical history: unknown sepsis (4-5 years old) - Surgical History Past Surgical History?: No - Social History Smoking Status: Never Smoker Substance Use Type: None - Medications Home Medications: Home Medications Medication Instructions Recorded Confirmed Last Taken Type Doxycycline Hyclate [Doxycycline 100 mg PO Q12HR #20 tab 01/29/16 Unknown Rx Hyclate TAB] HYDROcodone/APAP 5-325 [[place] 1 each PO Q6HR PRN #12 tablet 01/29/16 Unknown Rx 5/325] Acetaminophen [Non-Aspirin Extra 500 mg PO Q6HR PRN #30 tablet 05/16/19 Unknown Rx Strength] Ibuprofen [Motrin] 600 mg PO Q8H PRN #30 tablet 05/16/19 Unknown Rx cephALEXin [Keflex] 500 mg PO Q6HR #20 capsule 05/16/19 Unknown Rx Ciprofloxacin HCl [Ciprofloxacin 500 mg PO Q12HR #20 tab 06/12/19 Unknown Rx TAB] Ondansetron [Zofran Odt] 4 mg PO Q6HR PRN #20 tab.rapdis 06/12/19 Unknown Rx Tamsulosin [Flomax] 0.4 mg PO QDAY #10 cap 06/12/19 Unknown Rx oxyCODONE /ACETAMINOPHEN [Percocet 1 tab PO Q6HR PRN #12 tablet 06/12/19 Unknown Rx 5/325] HYDROcodone/APAP 7.5-325 [[place] 1 each PO Q6HR PRN #15 tablet 08/12/19 Unknown Rx 7.5/325] Ibuprofen [Motrin] 800 mg PO Q8HR PRN #30 tablet 08/12/19 Unknown Rx Sulfamethoxazole/Trimethoprim 1 each PO BID #14 tablet 08/12/19 Unknown Rx [Bactrim DS TAB] Ketorolac [Toradol] 10 mg PO Q8H PRN #20 tablet 09/04/19 Unknown Rx Ondansetron [Zofran ODT TAB] 4 mg PO Q8HR PRN #20 tab.rapdis 09/04/19 Unknown Rx Tamsulosin [Flomax] 0.4 mg PO QDAY #7 cap 09/04/19 Unknown Rx Ketorolac [Toradol] 10 mg PO Q6H PRN #30 tablet 09/12/19 Unknown Rx Sulfamethoxazole/Trimethoprim 1 each PO BID #20 tablet 09/12/19 Unknown Rx [Bactrim DS TAB] Tamsulosin [Flomax] 0.4 mg PO QDAY #10 cap 09/12/19 Unknown Rx ED Physical Exam - General Limitations: No Limitations General appearance: alert, in no apparent distress - Head Head exam: Present: atraumatic, normocephalic - Eye Eye exam: Present: normal appearance, PERRL, EOMI - ENT ENT exam: Present: mucous membranes moist - Neck Neck exam: Present: normal inspection - Respiratory Respiratory exam: Present: normal lung sounds bilaterally. Absent: respiratory distress - Cardiovascular Cardiovascular Exam: Present: regular rate, normal rhythm. Absent: systolic murmur, diastolic murmur, rubs, gallop - GI/Abdominal GI/Abdominal exam: Present: soft, normal bowel sounds - Rectal Rectal exam: Present: deferred - Extremities Exam Extremities exam: Present: normal inspection - Back Exam Back exam: Present: normal inspection, CVA tenderness (L). Absent: paraspinal tenderness, vertebral tenderness - Neurological Exam Neurological exam: Present: alert, oriented X3, CN II-XII intact, normal gait, motor sensory deficit - Psychiatric Psychiatric exam: Present: normal affect, normal mood. Absent: anxious, flat affect, suicidal ideation - Skin Skin exam: Present: warm, dry, intact, normal color. Absent: rash, cyanosis, diaphoretic, erythema, petechiae, pallor, abrasion ED Course Vital Signs 09/12/19 07:36 Temperature 98.4 F Pulse Rate 76 Respiratory 16 Rate Blood Pressure 116/89 O2 Sat by Pulse 97 Oximetry ED Medical Decision Making - Medical Decision Making 29-year-old male with left distal ureteral kidney stone found about a week ago no change in symptoms no aggression but is run out of the medication (medication refill here today no fever no vomiting no surgical abdomen is present. Discussed discussed IV fluids with Ms. Leavitt he feels he is okay with just the pain medication and his follow-up with urology next week advised him is a can return to emergency department should his symptoms worsen Critical care attestation.: If time is entered above; I have spent that time in minutes in the direct care of this critically ill patient, excluding procedure time. ED Disposition Clinical Impression: Dysuria, Kidney stone on left side Disposition: DC-01 TO HOME OR SELFCARE Is pt being admited?: No Does the pt Need Aspirin: No Condition: Stable Instructions: How to Strain Your Urine (ED), Kidney Stones (ED) Prescriptions: Sulfamethoxazole/Trimethoprim [Bactrim DS TAB] 1 each PO BID #20 tablet Tamsulosin [Flomax] 0.4 mg PO QDAY #10 cap Ketorolac [Toradol] 10 mg PO Q6H PRN #30 tablet PRN Reason: Pain Referrals: [facility] [Provider Group] - 3-5 Days
[2019-09-12] MEDS ORDERED: HYDROcodone/ACETAMINOPHEN 5-325 MG TAB PO ONE (08:21)
[2019-09-12] MEDS ORDERED: ONDANSETRON 4 MG ODT TAB PO ONE (08:40)
[2019-09-12] MEDS ORDERED: ONDANSETRON 4 MG ODT TAB ONE (08:41)
== END 2019-09-12 08:45 | disposition home or self-care (01) ==
LOC: ED 06:55
DX: N20.0 Calculus of kidney (principal)
CPT/HCPCS: 99282; Q0162

== ENCOUNTER 2020-07-06 13:03 | Emergency (ER) | payer BC | END 2020-07-06 14:29 | disposition left against medical advice (07) | LOC: ED 13:03 | DX: N20.0 Calculus of kidney (principal); Z53.21 Procedure and treatment not carried out due to patient leaving prior to being seen by health care provider ==